=== PATIENT | female | born 1985 | race African-American/Black ===

== ENCOUNTER 2016-12-25 02:50 | Emergency (ER) | payer OTHER ==
[~2016-12-25] VITALS: Ht 165.1 cm; Wt 62.6 kg
[~2016-12-25 02:50] MED LIST: NOHOMEMEDICATIONS; PHENERGAN25 MG RE; PREDNISONE 20 M20 MG PO
[2016-12-25 03:22] LABS: URINE BILIRUBIN NEGATIVE (Negative); URINE BLOOD TRACE (Negative); URINE COLOR YELLOW; URINE GLUCOSE-RANDOM* NEGATIVE (Negative); URINE KETONES TRACE (Negative); URINE LEUKOCYTES-REFLEX NEGATIVE (Negative); URINE PROTEIN (DIPSTICK) NEGATIVE (Negative); URINE SPECIFIC GRAVITY 1.015 (1.003-1.035); URINE UROBILINOGEN 0.2 E.U./dl (0.2-1.0)
[2016-12-25 03:38] LABS: ABSOLUTE NEUTROPHILS 7.2 thou/uL (1.4-8.2); BASOPHILS 1.2 % (0.0-2.0); EOSINOPHILS 1.7 % (0.0-3.0); HEMATOCRIT 38.6 % (37.0-47.0); HEMOGLOBIN 13.1 gm/dL (12.0-15.0); LYMPHOCYTES 28.6 % (24.0-44.0); MCH 30.9 pg (26.0-34.0); MONOCYTES 5.3 % (1.0-8.0); PLATELET COUNT 291 thou/uL (150-400); POLYS 63.2 % (36.0-66.0); RBC 4.25 mil/uL (4.20-5.00); RDW 12.9 % (10.5-14.5); WBC 11.3 thou/uL (4.0-11.0)
[2016-12-25 03:39] LABS: MANUAL DIFF NO
[2016-12-25 03:45] LABS: CALCIUM 8.7 mg/dL (8.5-10.1); CREATININE 0.8 mg/dL (0.6-1.0); POTASSIUM 3.4 mmol/L (3.5-5.1)
[2016-12-25 03:50] LABS: ALBUMIN 3.5 g/dL (3.4-5.0); TOTAL BILIRUBIN 0.3 mg/dL (<0.1-1.0); TOTAL PROTEIN 6.8 g/dL (6.4-8.2)
[2016-12-25 05:53] VITALS: BP 113/69
[2016-12-27 20:06] LABS: CHLAMYDIA TRACHOMATIS-PCR Negative (Negative); NEISSERIA GONORRHEA-PCR Negative (Negative)
== END 2016-12-25 06:09 | disposition home or self-care (01) ==
LOC: ER 02:50
PROVIDERS: Emergency Medicine
DX: O20.0 Threatened abortion (principal); O23.591 Infection of other part of genital tract in pregnancy, first trimester; F10.99 Alcohol use, unspecified with unspecified alcohol-induced disorder; F12.10 Cannabis abuse, uncomplicated; Z3A.01 Less than 8 weeks gestation of pregnancy; Z88.1 Allergy status to other antibiotic agents